=== PATIENT | female | born 1950 | race Caucasian/White ===

== ENCOUNTER 2024-04-24 08:28 | Outpatient (REF) | payer MEDICARE, SELFPAY ==
--- OUTSIDE RECORDS SUMMARY | 2024-04-24 08:41 | XMS_ITS | Continuity of Care Document ---
Author Organization [facility] Address [address] [place] [address] Phone Care Team Providers Care Spray Crew Name Role Phone AAA Provider MD, Test Unavailable Unavailabl e Allergies, Adverse Reactions, Alerts Substance Reaction Status Criticality ibuprofen respiratory problems(moderate) Active No Information Medications Medication Instructions Dosage Effective Dates (start - stop) Status Comments Augmentin 500 mg-125 mg tablet take 1 tablet by oral route every 12 hours 1.00 tablet - Active fluticasone 50 mcg/actuation Nasal [place], Susp spray 1 spray by intranasal route every day in each nostril - Active Procedures Procedure Date COPAY OFFICE/OUTPATIENT VISIT, EST COPAY OFFICE/OUTPATIENT VISIT, EST PREV VISIT, NEW, AGE 40-64 Advance Directives Directive Yes / No Effective Date File Name No Information Encounters Encounter Description Practice Location Reason(s) For Visit Diagnoses Date Provider Providers Copied on Encounter [facility], [address], [id number], [place] tel:[phone] Clinical Services Department No Information 3 [facility] Provider Test. [address] [place], [address], [place]. tel:[phone] [facility], [address] [facility] [address], [place], [place], [id number], [place] tel:[phone] [facility] No Information 4 Pharmacy [facility]. [address] [place], [address]. tel:[phone] OFFICE/OUTPAT IENT VISIT, [facility], [address] [address], [place], [place], [id number], [place] tel:[phone] [facility] breast tenderness (chief complaint) No Information 3 No Information [facility], [address], [place], [place], [id number], [place] tel:[phone] [facility] No Information 3 Pharmacy [facility]. [address] [place], [address]. tel:[phone] [facility], [address] [address], [place], [place], [id number], [place] tel:[phone] [facility] No Information 3 No Information OFFICE/OUTPAT IENT VISIT, [facility], [address] [facility] [address], [place], [place], [id number], [place] tel:[phone] [facility] cold symptoms (chief complaint) No Information 3 No Information PREV VISIT, NEW, AGE 40-64 [facility], [address] [facility] [address], [place], [place], [id number], [place] tel:[phone] [facility] preventive exam (chief complaint) No Information 2 No Information Family History Family Member Type Diagnosis Age At Onset No Information Payers Payer name Insurance type Covered democrat ID Authoriza tion(s) No Information Social History Type Description Quantity Date Captured Comments Alcohol Use Details Unknown Caffeine Use Details Unknown Tobacco Use Status No Information Smoking Status No Information Sex Female Chief Complaint And Reason For Visit No Information Reason For Referral Reason For Referral No Information Plan Of Treatment Date Type Action Status Goal Tdap. Due on due Goal Mammogram. Due on due Goal FOBT. Due on due Goal Fall Prevention Questionnaire. Due on due Goal DEXA scan. Due on 3 due Goal Pneumococcal vaccine. Due on due Goal Zoster vaccine (1st). Due on due Goal Colonoscopy. Due on due Goal Depression screening. Due on due Goal Td vaccine. Due on 23 due Goal Zoster vaccine. Due on due Goal Dental exam. Due on 023 due Goal Influenza vaccine. Due on due Referral Appointment date/timeframe: 02/20/2012 ordered Future Order: Lab Order LIPID PA NAKUL ([id number]), Ordered on: Ordered Future Order: Lab Order TSH ([id number]), O rdered on: Ordered Future Order: Lab Order Comp Met a Panel ([id number]), Ordered on: Ordered Future Order: Lab Order CBC with Diff ([id number]), Ordered on: Ordered History Of Present Illness Encounter Date Complaint History Of Prese nt Illness No Information Functional Status Date Functional Assessmen t No Information Instructions Date Instruction Additional Infor mation No Information Assessments Type Assessment Date No Information Patient Care Teams Name Effective Dates (start - stop) Status Members No Information
[2024-04-24 11:12] LABS: MANUAL DIFF FLAG NO
[2024-04-24 11:18] LABS: Basophils Absolute Auto 0.1 X10*3/uL (0.0-0.2); Basophils Percent Auto 0.7 % (0-2); Eosinophils Absolute Auto 0.6 X10*3/uL (0.0-0.4); Eosinophils Percent Auto 6.7 % (0-4); Hematocrit 43.3 % (37.0-47.0); Hemoglobin 14.8 g/dl (12.0-16.0); Imm Gran Abs Auto 0.04 X10*3/uL (0.00-0.03); Imm Gran Pct Auto 0.5 % (0.0-0.4); Lymphocytes Absolute Auto 1.5 X10*3/uL (1.2-4.9); Lymphocytes Percent Auto 17.4 % (20-40); Mean Corpuscular HGB Conc 34.2 g/dl (31.0-35.0); Mean Corpuscular Hemoglobin 30.3 pg (27.0-33.0); Mean Corpuscular Volume 88.7 fL (80.0-98.0); Mean Platelet Volume 9.7 fL (9.4-12.3); Monocytes Absolute Auto 0.6 X10*3/uL (0.1-1.2); Monocytes Percent Auto 6.8 % (2-11); Neutrophils Absolute Auto 5.8 x10*3/uL (2.0-8.3); Neutrophils Percent Auto 67.9 % (45-73); Platelet Count 279 X10*3/uL (160-400); Red Blood Count 4.88 X10*6/uL (4.20-5.50); Red Cell Distribution Width 12.4 % (11.0-16.0); White Blood Count 8.5 X10*3/uL (4.8-10.8)
[2024-04-24 11:57] LABS: Creatinine Urine 88.61 mg/dL; Microalbum/Creatinine Ratio Ur 6.7 ug/mg cr (<30)
[2024-04-24 11:58] LABS: Vitamin B12 727 pg/mL (200-900)
[2024-04-24 12:02] LABS: Alanine Aminotransferase 19 U/L (0-31); Albumin Level 4.3 g/dL (3.5-5.0); Alkaline Phosphatase 75 U/L (39-117); Anion Gap 10 (12-20); Aspartate Amino Transferase 20 U/L (5-31); Bilirubin Total 0.6 mg/dL (0.0-1.0); Blood Urea Nitrogen 12 mg/dL (9-16); Calcium 9.3 mg/dL (8.4-10.2); Carbon Dioxide 29 mmol/L (22-29); Chloride 105 mmol/L (96-108); Cholesterol 200 mg/dL (<200); Estimated Glomerular Filt Rate > 60; Ferritin 59 ng/mL (10-250); Glucose Random 101 mg/dL (60-115); HDL Cholesterol 50 mg/dL (>40); Iron 128 mcg/dL (30-160); Magnesium 2.1 mg/dL (1.6-2.6); Percent Iron Saturation 44 % (15-50); Potassium 3.9 mmol/L (3.3-5.1); Sodium 140 mmol/L (135-145); TSH reflex Free T4 1.06 uIU/mL (0.32-4.0); Total Iron Binding Capacity 291 mcg/dL (228-428); Total Protein 7.4 g/dL (6.5-8.0); Unsaturated Iron Binding 163 ug/dL; Vitamin D 25-OH Total 43.3 ng/mL (>30)
[2024-04-25 10:53] LABS: LDL Cholesterol Direct 130 mg/dL (<100)
[2024-05-04 23:28] LABS: Apolipoprotein B 110 mg/dL (<90)
== END 2024-04-24 08:29 | disposition home or self-care (01) ==
LOC: HO.WFDLDS 08:28
PROVIDERS: Visit Provider Internal Medicine
DX: Z00.00 Encounter for general adult medical examination without abnormal findings (principal); E78.00 Pure hypercholesterolemia, unspecified; J33.9 Nasal polyp, unspecified; R73.9 Hyperglycemia, unspecified; Z82.49 Family history of ischemic heart disease and other diseases of the circulatory system
CPT/HCPCS: 36415; 80053; 82043; 82172; 82306; 82465; 82570; 82607; 82728; 83540; 83718; 83721; 83735; 84443; 85025